=== PATIENT | female | born 1960 | race Caucasian/White ===

== ENCOUNTER 2019-03-08 07:44 | Day surgery (SDC) | payer OTHER ==
[2019-03-07 15:44] VITALS: BMI 20.9
[2019-03-08] MEDS ORDERED: LIDOCAINE HCL/PF 2% SDV 5ML VIAL ONE (11:14)
[2019-03-08] MEDS ORDERED: DEXAMETHASONE SOD PHOSPHATE 4 MG/1 ML VIAL ONE (11:14)
[2019-03-08] MEDS ORDERED: VANCOMYCIN 1,000 MG VIAL (RESTRICTED TO ID ONLY) ONE (11:14)
[2019-03-08] MEDS ORDERED: SODIUM CHLORIDE 0.9% P/F 10 ML VIAL IJ ONE (11:14)
[2019-03-08] MEDS ORDERED: VANCOMYCIN 1,000 MG VIAL (RESTRICTED TO ID ONLY) IVPB ONE (11:15)
[2019-03-08] MEDS ORDERED: PROPOFOL 20 ML ONE (11:21)
[2019-03-08] MEDS ORDERED: PHENYLEPHRINE HCL 10 MG/1 ML SINGLE DOSE VIAL ONE (11:36)
[2019-03-08] MEDS ORDERED: FUROSEMIDE 40 MG/4 ML INJECTABLE VIAL ONE (11:38)
[2019-03-08] MEDS ORDERED: ONDANSETRON 4 MG/2 ML VIAL IVPUSH PRN (11:55)
[2019-03-08] MEDS ORDERED: oxyCODONE HCL 5 MG TABLET PO PRN ×2 (11:55→12:15)
[2019-03-08] MEDS ORDERED: LACTATED RINGERS SOLUTION 1,000 ML IV SCH (12:00)
--- NOTE | 2019-03-08 12:19 | OP ---
Operative Note - Note: Operative Date: 03/08/19 Pre-Operative Diagnosis: RPU and RDU Operation: cysto/laser litho/stent Post-Operative Diagnosis: Same as Pre-op Surgeon: Shivam Young Anesthesia: General Specimens Removed: stone frags Operative Report Dictated: Yes
[2019-03-08] MEDS ORDERED: ONDANSETRON 4 MG/2 ML VIAL ONE ×2 (12:57→13:59)
[2019-03-08] MEDS ORDERED: ONDANSETRON 4 MG/2 ML VIAL IVPB ONE (14:00)
--- NOTE | 2019-03-08 14:32 | OP ---
DATE OF OPERATION: DATE OF DICTATION: 03/08/2019 PREOPERATIVE DIAGNOSES: Right ureteropelvic junction stone and a right distal ureteral stone. POSTOPERATIVE DIAGNOSES: Right ureteropelvic junction stone and a right distal ureteral stone. Right ureteropelvic junction obstruction. PROCEDURE: Cystoscopy, right retrograde pyelogram, right ureteroscopy, laser lithotripsy, stone basketing, and stent placement. SURGEON: Leobardo Bueno MD INDICATION: The patient is a 59-year-old female who had a stent placement 2 weeks ago for obstructing stones in the proximal and distal ureter. She was taken to the OR for treatment of the stones. DESCRIPTION OF PROCEDURE: Patient taken to the OR and was supine on the operating table. After cardiac monitoring administered and general anesthesia established, she was prepped and draped in dorsal lithotomy position. She was given 1000 mg of vancomycin. A rigid cystoscope was performed. Bladder was visibly normal. Stent was seen emanating from the right ureteral orifice. This was grasped with a grasper and brought out to the urethral meatus, at which point through the stent, the guide wire was advanced through the stent and into the right renal pelvis. A dual-lumen catheter was then advanced and a second guide wire was advanced. A large stone was seen at the UPJ, approximately 2 cm in length. This stone was pulverized to fine dust in 2-3-mm fragments until the entire stone burden was gone. The UPJ itself was narrowed, consistent with a UPJ obstruction. The kidney was inspected and multiple stone fragments were seen as a result of blasting, but no large stone fragments were noted. The ureteroscope was then removed into the distal ureter where the second stone was seen, approximately 5 to 6 mm in size. This was pulverized to fine dust in 1-2-mm fragments with the holmium laser fiber, as well, until the entire stone burden was removed. Some of the stone fragments were removed with a stone basket and sent to Pathology for analysis. The ureteroscope was then removed and then an 8-Gambian, 24-cm double-pigtail stent was then advanced in a monorail fashion. Fluoroscopy confirmed the stent to be in good position. Patient then awoken from anesthesia and transferred to recovery room in stable condition. There were no complications. Estimated blood loss minimal. LEOBARDO BUENO M.D. [id number]
[2019-03-08] MEDS ORDERED: PROMETHAZINE HCL 25 MG/1 ML VIAL IVPUSH ONE (15:13)
[2019-03-08] MEDS ORDERED: PROMETHAZINE HCL 25 MG/1 ML VIAL IVPB ONE (15:15)
[2019-03-08 18:21] VITALS: BP 123/66; PULSE 96; TEMP 98.1
--- NOTE | 2019-03-09 18:27 | PATH ---
Surgical Pathology Report Patient Name: MARIAJOSE ZARCO Med. Rec. #: [id number] /Age/Gender: 1960 (Age: 59) / F Account: [id number] Location: [facility] Taken: 03/08/2019 Received: 03/08/2019 Reported: 03/09/2019 Physicians: Shivam Young M.D. Specimen(s) Received RIGHT URETERAL STONE Clinical History Calculus of ureter and right kidney Final Diagnosis RIGHT URETERAL STONE, REMOVAL: CONSISTENT WITH URETERAL CALCULI. SENT FOR CHEMICAL ANALYSIS. Electronically Signed Sj Gallegos M.D. Gross Description Received fresh labeled "right ureteral stone," are 2 dong-white, irregular calculi measuring 0.1 and 0.2 cm in greatest dimension. The specimen is sent for chemical analysis. DL/03/08/2019 saudi/03/08/2019
[2019-03-15 14:13] LABS: CALCIUM PHOSPHATE 75 % (.); WEIGHT 3.4 mg (.)
== END 2019-03-08 18:20 | disposition home or self-care (01) ==
LOC: JASU-SURG 07:44
PROVIDERS: ATTEND Urology
PROC: 0TF68ZZ Fragmentation in Right Ureter, Via Natural or Artificial Opening Endoscopic (ICD-10-PCS; principal; 2019-03-08 10:00)
PROC: 0T768DZ Dilation of Right Ureter with Intraluminal Device, Via Natural or Artificial Opening Endoscopic (ICD-10-PCS; 2019-03-08 10:00)
DX: N20.1 Calculus of ureter (principal); N20.9 Urinary calculus, unspecified
CPT/HCPCS: 36415; 76000-TC-FY; 82360; 88300-TC; 94760